=== PATIENT | female | born 1955 | race Caucasian/White ===

== ENCOUNTER 2021-04-01 19:32 | Observation (INO) ==
[2021-04-01 20:39] LABS: ABS Basophils 0.1 10^3/ul (0-0.2); ABS Eosinophils 0.5 10^3/ul (0-0.6); ABS Lymphocytes 2.2 10^3/ul (1.0-4.8); ABS Monocytes 0.8 10^3/ul (0-0.8); ABS Neutrophils 2.8 10^3/ul (1.5-7.7); Eosinophil % 8.6 %; Hematocrit 42 % (35-47); Hemoglobin 14.4 g/dL (12.0-16.0); Lymphocyte % 33.9 %; Mean Corpuscular HGB Conc 35 g/dL (31-36); Mean Corpuscular Hemoglobin 29 pg (27-31); Mean Corpuscular Volume 84 fL (80-97); Mean Platelet Volume 8.3 fL (7.4-10.4); Nucleated Red Blood Cells % 0.1; Platelet Count 245 10^3/uL (150-450); Red Blood Count 4.96 10^6 /uL (3.70-4.87); Red Cell Distribution Width 13 % (10-15); White Blood Count 6.4 10^3/uL (3.5-10.8)
[2021-04-01] MEDS ORDERED: Al Hydrox/Mg Hydrox/Simet LIQ 30 ML UDC PO ONE (20:41)
[2021-04-01 20:46] LABS: INR 1.01 (0.86-1.15)
[2021-04-01 20:56] LABS: Albumin 4.9 g/dL (3.2-5.2); Albumin/Globulin Ratio 1.6 (1-3); Potassium 4.2 mmol/L (3.5-5.0); Total Bilirubin 0.7 mg/dL (0.2-1.0); Total Protein 7.9 g/dL (6.4-8.9); eGFR CKD-EPI 80.7 (>60)
[2021-04-01 21:12] LABS: Rapid COVID-19 Molecular Undetected (Undetected)
[2021-04-01] MEDS ORDERED: Iohexol 300 (CONTRAST) 10 ML SDV IV ONE ×2 (21:19→22:03)
[2021-04-01] MEDS ORDERED: Ondansetron 4 mg VIAL 2 MG/ML 2 ml VIAL IV ONE (22:23)
[2021-04-01] MEDS ORDERED: Pantoprazole VIAL 40 MG VIAL IV ONE (23:53)
[2021-04-02] MEDS ORDERED: Al Hydrox/Mg Hydrox/Simet LIQ 30 ML UDC PO PRN (01:08)
[2021-04-02] MEDS ORDERED: Ondansetron 4 mg VIAL 2 MG/ML 2 ml VIAL IV PRN (01:08)
[2021-04-02] MEDS ORDERED: Enoxaparin 40 MG/0.4 ML SYR SUBCUT SCH (02:00)
[2021-04-02 06:28] LABS: HDL Cholesterol 33.6 mg/dL
[2021-04-02 08:51] LABS: C Reactive Protein 2.98 mg/L (<8.01)
[2021-04-02] MEDS ORDERED: Pneumococcal Vac 23-Polyvalent IM ONE (09:00)
[2021-04-02] MEDS ORDERED: Regadenoson 0.4 MG/5 ML SYRINGE ONE (12:58)
[2021-04-02 19:44] VITALS: BP 98/51
== END 2021-04-02 18:20 | disposition home or self-care (01) ==
LOC: ED 19:32 → EDHOLD 19:32 → SUATTDRO 04-02 01:08 → MEDTELE 04-02 03:59
PROVIDERS: ADMIT Hospitalist; ATTEND Internal Medicine